=== PATIENT | male | born 2000 | race African-American/Black ===

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

== ENCOUNTER 2023-08-29 17:29 | Emergency (ER) | payer MEDICAID, OTHER ==
[~2023-08-29] VITALS: Ht 188 cm; Wt 81.0 kg
[2023-08-29 17:35] VITALS: TEMP 98.7; O2SAT 98
[2023-08-29 18:00] VITALS: BP 106/71; PULSE 81; RESP 16
[2023-08-29] MEDS ORDERED: IBUPROFEN 400MG TABLET PO ONE (18:00)
[2023-08-29] MEDS ORDERED: IBUP-2028 MT (19:26)
== END 2023-08-29 20:00 | disposition home or self-care (01) ==
LOC: ER 17:29
DX: M25.571 Pain in right ankle and joints of right foot (principal)
CPT/HCPCS: 29515; 73610; 99283